=== PATIENT | male | born 1970 | race African-American/Black ===

== ENCOUNTER → 2019-11-03 | Outpatient (CLI) | payer OTHER ==
--- NOTE | 2019-11-03 14:26 | RAD ---
EXAM: Right forearm, 2 views; right hand, 3 views. HISTORY: Pain. COMPARISON: None. FINDINGS: 2 views of the right forearm and 3 views of the right hand are obtained. There is a nondisplaced fracture involving the ulnar diaphysis. There is an 8 x 1 mm linear foreign body within the mid to distal dorsal forearm soft tissues. No additional fracture or foreign body is seen. IMPRESSION: 1. Nondisplaced ulnar diaphyseal fracture. 2. Foreign body within the mid to distal dorsal forearm soft tissues. Electronically signed by: Aurora Huerta MD (11/03/2019 2:24 PM) [place] [id number]
== END | disposition home or self-care (01) ==
LOC: DXRAD 13:34 → EEVIPCON 13:34
DX: S52.291A Other fracture of shaft of right ulna, initial encounter for closed fracture (principal); S50.851A Superficial foreign body of right forearm, initial encounter; W19.XXXA Unspecified fall, initial encounter; Y93.89 Activity, other specified; Y92.89 Other specified places as the place of occurrence of the external cause; Y99.8 Other external cause status
CPT/HCPCS: 73090; 73130

== ENCOUNTER → 2020-06-07 | Outpatient (CLI) | payer OTHER ==
--- NOTE | 2020-06-07 13:42 | RAD ---
EXAMINATION: FOREARM RIGHT CLINICAL HISTORY: Right arm pain TECHNIQUE: FOREARM RIGHT Number of different views (projections): 2 COMPARISON: 11/03/2019 FINDINGS: Healing fracture in the mid ulnar diaphysis with circumferential callus formation. Radiolucent fracture plane still subtly visible through the ulna and along the dorsal margin of callus. No new fracture. Joint spaces and alignment maintained. Redemonstration of thin linear radiopaque foreign body in the volar soft tissues of the distal forearm suggestive of a needle fragment. IMPRESSION: HEALING MID ULNAR DIAPHYSIS FRACTURE AND RETAINED FOREIGN BODY DESCRIBED. Electronically signed by: Gamaliel Nowak DO (06/07/2020 1:40 PM) [id number]
== END | disposition home or self-care (01) ==
LOC: DXRAD 12:25 → EEVIPCON 12:25
PROVIDERS: ATTEND Orthopaedic Surgery
DX: S52.224D Nondisplaced transverse fracture of shaft of right ulna, subsequent encounter for closed fracture with routine healing (principal); M79.89 Other specified soft tissue disorders; L84 Corns and callosities; X58.XXXD Exposure to other specified factors, subsequent encounter
CPT/HCPCS: 73090

== ENCOUNTER → 2020-08-08 | Outpatient (CLI) | payer OTHER ==
--- NOTE | 2020-08-08 08:29 | RAD ---
EXAMINATION: FOREARM RIGHT CLINICAL HISTORY: Reason: PAIN / Spl. Instructions: / History: TECHNIQUE: FOREARM RIGHT Number of Images/Views: 2 COMPARISON: 06/07/2020 FINDINGS: Mid ulnar diaphysis fracture remains in similar alignment with persistent but more subtle radiolucent fracture plane. Continued maturation of circumferential bridging callus. Remainder of the study otherwise unchanged. IMPRESSION: Healing mid ulnar diaphysis fracture. Electronically signed by: Gamaliel Nowak DO (08/08/2020 8:25 AM) [id number]
== END ==
LOC: RAD 08:05
PROVIDERS: ATTEND Physician Assistant
DX: S52.224D Nondisplaced transverse fracture of shaft of right ulna, subsequent encounter for closed fracture with routine healing (principal); X58.XXXD Exposure to other specified factors, subsequent encounter
CPT/HCPCS: 73090